=== PATIENT | male | born 1970 | race Hispanic/Latino ===

== ENCOUNTER 2021-11-18 09:33 | Observation (INO) | payer BC, SELFPAY ==
[2021-11-18] MEDS ORDERED: methylPREDNISolone Sod Succ/PF 125 MG/2 ML VIAL ONE (10:35)
[2021-11-18] MEDS ORDERED: Famotidine/PF 20 mg/2ml Vial ONE (10:35)
[2021-11-18] MEDS ORDERED: diphenhydrAMINE 50 MG/ML VIAL ONE (10:35)
[2021-11-18] MEDS ORDERED: Acetaminophen 325 MG TAB PO PRN (12:27)
[2021-11-18] MEDS ORDERED: Ondansetron ODT 4 MG TAB PO PRN ×2 (12:27→13:19)
[2021-11-18] MEDS ORDERED: hydrALAZINE 20 MG/ML VIAL SLOW IVP PRN (12:29)
[2021-11-18] MEDS ORDERED: Lorazepam 0.5 MG TAB PO PRN (12:37)
[2021-11-18] MEDS ORDERED: Lorazepam 2 MG/ML VIAL IM PRN (13:19)
[2021-11-18] MEDS ORDERED: Lorazepam 1 MG TAB PO PRN (13:19)
[2021-11-18] MEDS ORDERED: Electrolyte Replacement Protocol 1 EACH FS SCH (13:30)
[2021-11-18] MEDS ORDERED: Folic Acid 1 MG TAB PO SCH (13:45)
[2021-11-18] MEDS ORDERED: Multivit, Therapeutic 1 TAB PO SCH (13:45)
[2021-11-18 14:52] LABS: #Lymphocytes 0.9 thou/uL (1.20-3.40); #Monocytes 0.2 thou/uL (0.11-0.59); #Neutrophils 13.3 thou/uL (1.40-6.50); %Basophils 0.1 % (0.0-1.0); %Eosinophils 0.2 % (0.0-10.0); %Monocytes 1.7 % (0.0-10.0); %Neutrophils 92.1 % (42.0-75.0); Hemoglobin 15.8 g/dL (14.0-18.0); Mean Corpuscular HGB CONC 33.8 g/dL (32.0-36.0); Mean Corpuscular Hemoglobin 32.2 pg (27.0-31.0); Mean Corpuscular Volume 95.3 fL (78.0-98.0); Mean Platelet Volume 7.8 fL (7.4-10.4); Platelet Count 225 thou/uL (130-400); RBC Distribution Width 13.3 % (11.5-14.5); White Blood Cell (WBC) Count 14.5 thou/uL (4.8-10.8)
[2021-11-18 15:22] LABS: ALT (SGPT) 40 U/L (8-55); AST (SGOT) 56 U/L (5-34); Albumin 4.6 g/dL (3.5-5.0); Alkaline Phosphatase 146 U/L (40-110); Anion Gap 17 mmol/L (10-20); BUN (Urea Nitrogen) 17 mg/dL (8.4-25.7); Bilirubin, Direct 0.9 mg/dL (0.1-0.3); Bilirubin, Total 2.2 mg/dL (0.2-1.2); Calc. Creatinine Clearance 0 mL/min (70-130); Carbon Dioxide 21 mmol/L (22-29); Chloride 100 mmol/L (98-107); Estimated GFR 105; Globulin 5.2 g/dL (2.4-3.5); Glucose 186 mg/dL (70-105); Magnesium 2.2 mg/dL (1.6-2.6); Phosphorus 2.1 mg/dL (2.3-4.7); Potassium 4.2 mmol/L (3.5-5.1); Protein, Total 9.8 g/dL (6.0-8.3); Sodium 134 mmol/L (136-145)
[2021-11-18 16:02] VITALS: BMI 40.2
[2021-11-18] MEDS: Lorazepam 1 MG TAB PO SCH ×2 (17:12→18:29)
[2021-11-19] MEDS: Lorazepam 1 MG TAB PO SCH ×2 (01:32→06:37)
[2021-11-19 05:27] LABS: #Lymphocytes 1.6 thou/uL (1.20-3.40); #Monocytes 2.3 thou/uL (0.11-0.59); #Neutrophils 15.3 thou/uL (1.40-6.50); %Basophils 0.1 % (0.0-1.0); %Eosinophils 0.1 % (0.0-10.0); %Lymphocytes 8.5 % (21.0-51.0); %Monocytes 11.9 % (0.0-10.0); %Neutrophils 79.4 % (42.0-75.0); Hemoglobin 14.8 g/dL (14.0-18.0); Mean Corpuscular HGB CONC 33.2 g/dL (32.0-36.0); Mean Corpuscular Hemoglobin 32.2 pg (27.0-31.0); Mean Corpuscular Volume 96.8 fL (78.0-98.0); Mean Platelet Volume 7.7 fL (7.4-10.4); Platelet Count 207 thou/uL (130-400); RBC Distribution Width 13.1 % (11.5-14.5); Red Blood Cell (RBC) Count 4.61 mill/uL (4.70-6.10); White Blood Cell (WBC) Count 19.3 thou/uL (4.8-10.8)
[2021-11-19 05:50] LABS: Anion Gap 13 mmol/L (10-20); BUN (Urea Nitrogen) 19 mg/dL (8.4-25.7); Calc. Creatinine Clearance 156 mL/min (70-130); Calcium 9.5 mg/dL (7.8-10.44); Carbon Dioxide 22 mmol/L (22-29); Chloride 101 mmol/L (98-107); Estimated GFR 107; Glucose 143 mg/dL (70-105); Potassium 3.8 mmol/L (3.5-5.1); Sodium 132 mmol/L (136-145)
[2021-11-19 08:04] VITALS: BP 137/76; TEMP 98.2
[2021-11-19] MEDS ORDERED: Multivit, Therapeutic 1 TAB PO SCH (09:00)
[2021-11-19] MEDS ORDERED: Nicotine 21 MG PATCH TD SCH (09:00)
[2021-11-19] MEDS ORDERED: Folic Acid 1 MG TAB PO SCH (09:00)
[2021-11-19] MEDS ORDERED: Famotidine 20 MG TAB PO SCH ×2 (11:00→21:00)
[2021-11-19] MEDS ORDERED: Amlodipine 5 MG TAB PO SCH (11:00)
[2021-11-19] MEDS ORDERED: predniSONE 20 MG TAB PO SCH (11:00)
[2021-11-19] MEDS ORDERED: Loratadine 10 MG TAB PO SCH (11:15)
[2021-11-19] MEDS ORDERED: Lorazepam 1 MG TAB PO PRN (13:20)
[2021-11-20] MEDS ORDERED: Amlodipine 5 MG TAB PO SCH (09:00)
[2021-11-20] MEDS ORDERED: Loratadine 10 MG TAB PO SCH (09:00)
[2021-11-20] MEDS ORDERED: Lorazepam 1 MG TAB PO PRN (13:20)
[2021-11-20] MEDS ORDERED: Lorazepam 0.5 MG TAB PO SCH (13:30)
[2021-11-21] MEDS ORDERED: Lorazepam 0.5 MG TAB PO PRN (13:20)
[2021-11-21] MEDS ORDERED: Thiamine 100 MG TAB PO SCH (13:30)
== END 2021-11-19 11:30 | disposition home or self-care (01) ==
LOC: ERS 09:33 → SJJU 13:27
PROVIDERS: ADMIT Internal Medicine; ATTEND Internal Medicine
DX: T78.3XXA Angioneurotic edema, initial encounter (principal); T46.4X5A Adverse effect of angiotensin-converting-enzyme inhibitors, initial encounter; F17.210 Nicotine dependence, cigarettes, uncomplicated; F10.10 Alcohol abuse, uncomplicated; E87.1 Hypo-osmolality and hyponatremia; R79.89 Other specified abnormal findings of blood chemistry; I10 Essential (primary) hypertension; Z79.899 Other long term (current) drug therapy; Z20.822 Contact with and (suspected) exposure to COVID-19
CPT/HCPCS: 36415; 80048; 80053; 82248; 83735; 84100; 85025; 90471; 90732; 94760; 96374; 96375; G0009; G0378; J1200; J2930; J7512; S0028; U0003; U0005